=== PATIENT | female | born 1950 | race Two or more races ===

== ENCOUNTER → 2019-01-27 | Outpatient (CLI) | payer MEDICARE ==
[~2019-01-27] MED LIST: ASPI-496 PO; MULT-230 PO; SENN8.6T12 PO; lisinopril PO
[2019-01-27 09:55] LABS: MICROSCOPIC NOT IND
[2019-01-27 09:58] LABS: BASOPHILS # (AUTO) 0.03 x10^3/uL (0-0.1); BASOPHILS % (AUTO) 0 % (0-1); EOSINOPHILS # (AUTO) 0.07 x10^3/uL (0-0.4); EOSINOPHILS % (AUTO) 1 % (1-7); LYMPHOCYTES % (AUTO) 32 % (22-44); MD NO; MEAN CORPUSCULAR HEMOGLOBIN 32.5 pg (27.0-34.8); MEAN CORPUSCULAR HGB CONC 34.4 g/dL (32.4-35.8); MEAN CORPUSCULAR VOLUME 94.5 fL (80-100); MEAN PLATELET VOLUME 8.5 fL (7.4-10.4); MONOCYTES # (AUTO) 0.57 x10^3/uL (0.2-0.8); MONOCYTES % (AUTO) 7 % (2-9); NEUTROPHILS # (AUTO) 5.27 x10^3/uL (1.8-6.8); NEUTROPHILS % (AUTO) 60 % (42-75); PLATELET COUNT 251 x10^3/uL (130-400); RED BLOOD COUNT 4.45 x10^6/uL (3.82-5.3); RED CELL DISTRIBUTION WIDTH 13.1 % (9.6-15.2)
[2019-01-27 09:59] LABS: CULTURE INDICATED? NO
[2019-01-27 10:03] LABS: INTERNATIONAL NORMALIZED RATIO 0.93 (0.93-1.1); PROTHROMBIN TIME 9.8 Seconds (9.6-11.5)
[2019-01-27 10:04] LABS: ALANINE AMINOTRANSFERASE 26 U/L (12-78); ALBUMIN 3.7 g/dL (3.4-5.0); ANION GAP 4 mmol/L (5-15); CALCIUM 9.3 mg/dL (8.5-10.1); CHLORIDE 108 mmol/L (98-107)
[2019-01-27 10:06] LABS: ALKALINE PHOSPHATASE 133 U/L (45-117); BILIRUBIN,TOTAL 0.7 mg/dL (0.2-1.0); TOTAL PROTEIN 7.4 g/dL (6.4-8.2)
== END | disposition home or self-care (01) ==
LOC: EDSEX 08:32 → STAR 08:32
PROVIDERS: ATTEND Neurological Surgery
DX: Z01.818 Encounter for other preprocedural examination (principal); M43.16 Spondylolisthesis, lumbar region
CPT/HCPCS: 36415; 71046; 80053; 81003; 85025; 85610; 85730; 93005

== ENCOUNTER 2019-02-03 05:23 | Inpatient (IN) | payer MEDICARE ==
[2019-01-27 09:05] VITALS: BP 171/86
[~2019-02-03] VITALS: Ht 152.4 cm; Wt 79.3 kg
[~2019-02-03 05:23] MED LIST changes: -MULT-230 PO; +MULT-806 PO
[2019-02-03] MEDS ORDERED: LACTATED RINGERS 1,000 ML IV SCH (06:04)
[2019-02-03] MEDS ORDERED: BUPIVACAINE/PF-EPI 0.5% 1:200K ONE (06:06)
[2019-02-03] MEDS ORDERED: RANI150C PO (06:07)
[2019-02-03] MEDS ORDERED: THROMBIN 5,000 UNIT VIAL TP ONE ×3 (06:07→09:56)
[2019-02-03] MEDS ORDERED: BACITRACIN 50,000 UNIT ONE (06:07)
[2019-02-03] MEDS ORDERED: ATOR40TA78 PO (06:07)
[2019-02-03] MEDS ORDERED: LISI1TAB3 PO (06:08)
[2019-02-03] MEDS ORDERED: MIDAZOLAM 1 MG/ML, 2ML ONE (06:20)
[2019-02-03] MEDS ORDERED: FENTANYL PF 250 MCG/5ML ONE (06:20)
[2019-02-03] MEDS ORDERED: OXYcodone 5 MG/5 ML ORAL.SOL UDC PO PRN (07:00)
[2019-02-03] MEDS ORDERED: METOCLOPRAMIDE 5 MG/ML, 2ML IV PRN (07:00)
[2019-02-03] MEDS ORDERED: MEPERIDINE/PF 25MG/0.5ML IVPush PRN (07:00)
[2019-02-03] MEDS ORDERED: LABETALOL 5 MG/ML SYRINGE IV PRN (07:00)
[2019-02-03] MEDS ORDERED: HYDROmorphone 2 MG/ML, 1ML IVPush PRN (07:00)
[2019-02-03] MEDS ORDERED: GABAPENTIN 300 MG CAPSULE PO ONE (07:00)
[2019-02-03] MEDS ORDERED: LORazepam 2 MG/ML, 1ML IVPush PRN (07:00)
[2019-02-03] MEDS ORDERED: ACETAMINOPHEN 500 MG TABLET PO ONE (07:00)
[2019-02-03] MEDS ORDERED: FENTANYL PF 100 MCG/2ML IV PRN (07:00)
[2019-02-03] MEDS ORDERED: hydrALAzine 20 MG/ML, 1ML IV PRN (07:00)
[2019-02-03] MEDS ORDERED: DEXAMETHASONE 4 MG/ML, 1ML ONE (07:01)
[2019-02-03] MEDS ORDERED: CEFAZOLIN 1,000 MG ONE (07:01)
[2019-02-03] MEDS ORDERED: ONDANSETRON 2MG/ML, 2ML ONE (07:01)
[2019-02-03] MEDS ORDERED: EPHEDRINE 50 MG/ML, 1ML ONE (07:01)
[2019-02-03] MEDS ORDERED: ROCURONIUM 10 MG/ML,10ML ONE (07:01)
[2019-02-03] MEDS ORDERED: PROPOFOL 10 MG/ML, 20ML ONE (07:01)
[2019-02-03] MEDS ORDERED: HEPARIN 1,000 UNITS/ML, 30ML ONE (08:54)
[2019-02-03] MEDS ORDERED: DIPHENHYDRAMINE 50 MG/ML, 1ML IVPush PRN (10:00)
[2019-02-03] MEDS ORDERED: METHOCARBAMOL 750 MG TABLET PO PRN (10:00)
[2019-02-03] MEDS ORDERED: SENNA/DOCUSATE TABLET PO PRN (10:00)
[2019-02-03] MEDS ORDERED: PROMETHAZINE 25 MG/ML, 1ML IM PRN (10:00)
[2019-02-03] MEDS ORDERED: HYDROcodone/APAP 10/325 MG TABLET PO PRN (10:00)
[2019-02-03] MEDS ORDERED: morphine SULFATE 10 MG/ML, 1ML IVPush PRN (10:00)
[2019-02-03] MEDS ORDERED: BISACODYL 10 MG SUPP PR PRN (10:00)
[2019-02-03] MEDS ORDERED: PHARMACY MAY ADJ FOR RENAL FX MC PRN (10:00)
[2019-02-03] MEDS ORDERED: HYDROcodone/APAP 5/325 TABLET PO PRN (10:00)
[2019-02-03] MEDS ORDERED: ONDANSETRON 2MG/ML, 2ML IVPush PRN (10:00)
[2019-02-03] MEDS: MORPHINE SULFATE 4 MG/ML, 1ML IVPush PRN ×3 (10:10→10:59)
[2019-02-03] MEDS ORDERED: OXYcodone 5 MG/5 ML ORAL.SOL UDC ONE (10:14)
[2019-02-03] MEDS ORDERED: morphine SULFATE 10 MG/ML, 1ML ONE (10:14)
[2019-02-03 10:18] LABS: BASOPHILS # (AUTO) 0.03 x10^3/uL (0-0.1); BASOPHILS % (AUTO) 0 % (0-1); EOSINOPHILS # (AUTO) 0.01 x10^3/uL (0-0.4); EOSINOPHILS % (AUTO) 0 % (1-7); LYMPHOCYTES # (AUTO) 1.57 x10^3/uL (1-3.4); LYMPHOCYTES % (AUTO) 10 % (22-44); MD NO; MEAN CORPUSCULAR HEMOGLOBIN 31.4 pg (27.0-34.8); MEAN CORPUSCULAR HGB CONC 33.3 g/dL (32.4-35.8); MEAN CORPUSCULAR VOLUME 94.2 fL (80-100); MONOCYTES # (AUTO) 0.14 x10^3/uL (0.2-0.8); MONOCYTES % (AUTO) 1 % (2-9); NEUTROPHILS # (AUTO) 14.21 x10^3/uL (1.8-6.8); NEUTROPHILS % (AUTO) 89 % (42-75); PLATELET COUNT 233 x10^3/uL (130-400); RED BLOOD COUNT 4.08 x10^6/uL (3.82-5.3); RED CELL DISTRIBUTION WIDTH 13.2 % (9.6-15.2)
[2019-02-03 10:29] LABS: ANION GAP 6 mmol/L (5-15); CALCIUM 7.9 mg/dL (8.5-10.1); CHLORIDE 113 mmol/L (98-107); CREATININE 0.79 mg/dL (0.55-1.02)
[2019-02-03] MEDS: D5%-0.9% NACL+KCL 20MEQ 1,000 ML IV SCH ×2 (14:33→22:56)
[2019-02-03 14:52] VITALS: BP 114/73
[2019-02-03] MEDS: CEFAZOLIN PMX 1GM/50ML 50 ML IVPB SCH ×2 (15:23→22:56)
[2019-02-03 18:32] VITALS: BP 93/51
[2019-02-04 00:22] VITALS: BP 95/58
[2019-02-04 03:47] VITALS: BP 101/55
[2019-02-04 06:43] LABS: BASOPHILS # (AUTO) 0.03 x10^3/uL (0-0.1); BASOPHILS % (AUTO) 0 % (0-1); EOSINOPHILS % (AUTO) 0 % (1-7); LYMPHOCYTES # (AUTO) 1.91 x10^3/uL (1-3.4); LYMPHOCYTES % (AUTO) 14 % (22-44); MD NO; MEAN CORPUSCULAR HGB CONC 32.8 g/dL (32.4-35.8); MEAN CORPUSCULAR VOLUME 94.4 fL (80-100); MEAN PLATELET VOLUME 8.3 fL (7.4-10.4); MONOCYTES # (AUTO) 1.02 x10^3/uL (0.2-0.8); MONOCYTES % (AUTO) 7 % (2-9); NEUTROPHILS # (AUTO) 10.79 x10^3/uL (1.8-6.8); NEUTROPHILS % (AUTO) 79 % (42-75); PLATELET COUNT 201 x10^3/uL (130-400); RED BLOOD COUNT 3.33 x10^6/uL (3.82-5.3); RED CELL DISTRIBUTION WIDTH 13.5 % (9.6-15.2)
[2019-02-04 07:25] VITALS: BP 98/62
[2019-02-04] MEDS: HYDROCHLOROTHIAZIDE 12.5 MG CAPSULE PO SCH (08:28)
[2019-02-04] MEDS: LISINOPRIL 10 MG TABLET PO SCH (08:29)
[2019-02-04] MEDS: ATORVASTATIN 40 MG TABLET PO SCH (08:29)
[2019-02-04] MEDS: MULTIVITAMINS WITH IRON TABLET PO SCH (08:29)
[2019-02-04] MEDS: FAMOTIDINE 20 MG TABLET PO SCH (08:30)
[2019-02-04] MEDS: D5%-0.9% NACL+KCL 20MEQ 1,000 ML IV SCH ×2 (08:30→17:43)
[2019-02-04 10:56] LABS: BASOPHILS # (AUTO) 0.03 x10^3/uL (0-0.1); BASOPHILS % (AUTO) 0 % (0-1); EOSINOPHILS # (AUTO) 0.01 x10^3/uL (0-0.4); EOSINOPHILS % (AUTO) 0 % (1-7); LYMPHOCYTES # (AUTO) 2.31 x10^3/uL (1-3.4); LYMPHOCYTES % (AUTO) 18 % (22-44); MD NO; MEAN CORPUSCULAR HEMOGLOBIN 31.2 pg (27.0-34.8); MEAN CORPUSCULAR HGB CONC 32.5 g/dL (32.4-35.8); MEAN CORPUSCULAR VOLUME 96.1 fL (80-100); MEAN PLATELET VOLUME 8.1 fL (7.4-10.4); MONOCYTES # (AUTO) 0.97 x10^3/uL (0.2-0.8); MONOCYTES % (AUTO) 8 % (2-9); NEUTROPHILS # (AUTO) 9.57 x10^3/uL (1.8-6.8); NEUTROPHILS % (AUTO) 74 % (42-75); PLATELET COUNT 179 x10^3/uL (130-400); RED BLOOD COUNT 3.13 x10^6/uL (3.82-5.3); RED CELL DISTRIBUTION WIDTH 13.4 % (9.6-15.2)
[2019-02-04] MEDS: OXYcodone/APAP 5/325MG TABLET PO PRN ×2 (12:18→20:33)
[2019-02-04 13:43] VITALS: BP 84/33
[2019-02-04 16:29] LABS: BASOPHILS # (AUTO) 0.04 x10^3/uL (0-0.1); BASOPHILS % (AUTO) 0 % (0-1); EOSINOPHILS # (AUTO) 0.06 x10^3/uL (0-0.4); EOSINOPHILS % (AUTO) 1 % (1-7); LYMPHOCYTES % (AUTO) 25 % (22-44); MD NO; MEAN CORPUSCULAR HEMOGLOBIN 31.1 pg (27.0-34.8); MEAN CORPUSCULAR HGB CONC 32.8 g/dL (32.4-35.8); MEAN CORPUSCULAR VOLUME 94.8 fL (80-100); MEAN PLATELET VOLUME 8.5 fL (7.4-10.4); MONOCYTES # (AUTO) 0.72 x10^3/uL (0.2-0.8); MONOCYTES % (AUTO) 6 % (2-9); NEUTROPHILS # (AUTO) 7.84 x10^3/uL (1.8-6.8); NEUTROPHILS % (AUTO) 68 % (42-75); PLATELET COUNT 185 x10^3/uL (130-400); RED BLOOD COUNT 3.13 x10^6/uL (3.82-5.3)
[2019-02-04 19:18] VITALS: BP 80/46
[2019-02-04 21:03] LABS: BASOPHILS # (AUTO) 0.04 x10^3/uL (0-0.1); BASOPHILS % (AUTO) 0 % (0-1); EOSINOPHILS # (AUTO) 0.09 x10^3/uL (0-0.4); EOSINOPHILS % (AUTO) 1 % (1-7); LYMPHOCYTES # (AUTO) 3.26 x10^3/uL (1-3.4); LYMPHOCYTES % (AUTO) 28 % (22-44); MD NO; MEAN CORPUSCULAR HEMOGLOBIN 32.4 pg (27.0-34.8); MEAN CORPUSCULAR HGB CONC 33.9 g/dL (32.4-35.8); MEAN CORPUSCULAR VOLUME 95.7 fL (80-100); MEAN PLATELET VOLUME 8.5 fL (7.4-10.4); MONOCYTES # (AUTO) 0.79 x10^3/uL (0.2-0.8); MONOCYTES % (AUTO) 7 % (2-9); NEUTROPHILS % (AUTO) 64 % (42-75); PLATELET COUNT 174 x10^3/uL (130-400); RED BLOOD COUNT 3.08 x10^6/uL (3.82-5.3); RED CELL DISTRIBUTION WIDTH 13.3 % (9.6-15.2)
[2019-02-04 23:08] VITALS: BP 90/48
[2019-02-05 00:36] VITALS: BP 94/62
[2019-02-05] MEDS: D5%-0.9% NACL+KCL 20MEQ 1,000 ML IV SCH ×2 (01:09→09:00)
[2019-02-05 05:58] LABS: BASOPHILS # (AUTO) 0.03 x10^3/uL (0-0.1); BASOPHILS % (AUTO) 0 % (0-1); EOSINOPHILS # (AUTO) 0.12 x10^3/uL (0-0.4); EOSINOPHILS % (AUTO) 1 % (1-7); LYMPHOCYTES # (AUTO) 3.21 x10^3/uL (1-3.4); LYMPHOCYTES % (AUTO) 32 % (22-44); MD NO; MEAN CORPUSCULAR HEMOGLOBIN 32.5 pg (27.0-34.8); MEAN CORPUSCULAR HGB CONC 33.9 g/dL (32.4-35.8); MEAN CORPUSCULAR VOLUME 95.7 fL (80-100); MEAN PLATELET VOLUME 8.7 fL (7.4-10.4); MONOCYTES % (AUTO) 8 % (2-9); NEUTROPHILS # (AUTO) 5.79 x10^3/uL (1.8-6.8); NEUTROPHILS % (AUTO) 58 % (42-75); PLATELET COUNT 168 x10^3/uL (130-400); RED BLOOD COUNT 3.06 x10^6/uL (3.82-5.3); RED CELL DISTRIBUTION WIDTH 13.8 % (9.6-15.2)
[2019-02-05 06:53] VITALS: BP 113/78
[2019-02-05] MEDS: LISINOPRIL 10 MG TABLET PO SCH (09:06)
[2019-02-05] MEDS: ATORVASTATIN 40 MG TABLET PO SCH (09:07)
[2019-02-05] MEDS: HYDROCHLOROTHIAZIDE 12.5 MG CAPSULE PO SCH (09:07)
[2019-02-05] MEDS: FAMOTIDINE 20 MG TABLET PO SCH (09:07)
[2019-02-05] MEDS: MULTIVITAMINS WITH IRON TABLET PO SCH (09:07)
[2019-02-05 11:15] LABS: BASOPHILS # (AUTO) 0.06 x10^3/uL (0-0.1); BASOPHILS % (AUTO) 1 % (0-1); EOSINOPHILS # (AUTO) 0.12 x10^3/uL (0-0.4); EOSINOPHILS % (AUTO) 1 % (1-7); LYMPHOCYTES % (AUTO) 31 % (22-44); MD NO; MEAN CORPUSCULAR HEMOGLOBIN 31.9 pg (27.0-34.8); MEAN CORPUSCULAR HGB CONC 33.7 g/dL (32.4-35.8); MEAN CORPUSCULAR VOLUME 94.7 fL (80-100); MEAN PLATELET VOLUME 8.6 fL (7.4-10.4); MONOCYTES # (AUTO) 0.79 x10^3/uL (0.2-0.8); MONOCYTES % (AUTO) 8 % (2-9); NEUTROPHILS # (AUTO) 5.74 x10^3/uL (1.8-6.8); NEUTROPHILS % (AUTO) 59 % (42-75); PLATELET COUNT 189 x10^3/uL (130-400); RED CELL DISTRIBUTION WIDTH 13.2 % (9.6-15.2)
== END 2019-02-05 11:55 | disposition home or self-care (01) | DRG 981 ==
LOC: EDSEX → ORIP 05:23 → 4NOR 11:37 → DCLOUNGE 02-05 11:39
PROVIDERS: ADMIT Neurological Surgery; ATTEND Neurological Surgery
PROC: 30233K1 Transfusion of Nonautologous Frozen Plasma into Peripheral Vein, Percutaneous Approach (ICD-10-PCS; 2019-02-03)
PROC: 30233R1 Transfusion of Nonautologous Platelets into Peripheral Vein, Percutaneous Approach (ICD-10-PCS; 2019-02-03)
PROC: 06QD0ZZ Repair Left Common Iliac Vein, Open Approach (ICD-10-PCS; principal; 2019-02-03 07:00)
DX: M51.37 Other intervertebral disc degeneration, lumbosacral region (principal); S35.515A Injury of left iliac vein, initial encounter; M43.17 Spondylolisthesis, lumbosacral region; I10 Essential (primary) hypertension; E66.9 Obesity, unspecified; X58.XXXA Exposure to other specified factors, initial encounter; F32.9 Major depressive disorder, single episode, unspecified; F41.9 Anxiety disorder, unspecified; M51.16 Intervertebral disc disorders with radiculopathy, lumbar region; Z53.8 Procedure and treatment not carried out for other reasons; Z98.1 Arthrodesis status; Y93.89 Activity, other specified; Y92.89 Other specified places as the place of occurrence of the external cause; Z68.34 Body mass index [BMI] 34.0-34.9, adult; Z79.899 Other long term (current) drug therapy; Z83.3 Family history of diabetes mellitus; Z82.49 Family history of ischemic heart disease and other diseases of the circulatory system; Z87.891 Personal history of nicotine dependence
CPT/HCPCS: 36415; 72110; 72131; 74018; 80048; 85025; 86850; 86900; 86923; G0378; J0690; J1100; J1644; J2250; J2405; J2704; J3010; C1760; J3480; J7120; P9017; P9035

== ENCOUNTER 2019-04-14 07:00 | Inpatient (IN) | payer MEDICARE ==
[~2019-04-14] VITALS: Ht 152.4 cm; Wt 73.5 kg
[~2019-04-14 07:00] MED LIST changes: +ATOR40TA78 PO; +BACITRACIN 50,000 UNIT ONE; +BUPIVACAINE/PF 0.5% ONE; +BUPIVACAINE/PF-EPI 0.5% 1:200K ONE; +LISI1TAB3 PO; +RANI150C PO; +THROMBIN 5,000 UNIT VIAL TP ONE; +VANCOMYCIN 1,000 MG ONE
[2019-04-14] MEDS ORDERED: FENTANYL PF 250 MCG/5ML ONE (10:15)
[2019-04-14] MEDS ORDERED: MIDAZOLAM 1 MG/ML, 2ML ONE (10:15)
[2019-04-14] MEDS ORDERED: WATER-INJECTION,STERILE 10 ML IV ONE (10:16)
[2019-04-14] MEDS ORDERED: CEFAZOLIN 1,000 MG ONE ×2 (10:16)
[2019-04-14] MEDS ORDERED: ROCURONIUM 10MG/ML,5ML ONE (10:17)
[2019-04-14] MEDS ORDERED: PROPOFOL 10 MG/ML, 20ML ONE (10:18)
[2019-04-14] MEDS ORDERED: LIDOCAINE-MPF 2% ,5ML ONE (10:18)
[2019-04-14 10:55] VITALS: BP 126/82
[2019-04-14] MEDS ORDERED: LACTATED RINGERS 1,000 ML IV SCH (10:59)
[2019-04-14] MEDS ORDERED: PHENYLEPHRINE 10 MG/ML ONE (11:10)
[2019-04-14 11:23] LABS: MICROSCOPIC NOT IND
[2019-04-14 11:27] LABS: CULTURE INDICATED? NO
[2019-04-14] MEDS ORDERED: GLYCOPYRROLATE 0.2MG/1ML, 5ML ONE (11:48)
[2019-04-14] MEDS ORDERED: NEOSTIGMINE 1 MG/ML, 10ML ONE (11:48)
[2019-04-14] MEDS ORDERED: ONDANSETRON 2MG/ML, 2ML ONE ×2 (11:55)
[2019-04-14] MEDS ORDERED: DEXAMETHASONE 4 MG/ML, 1ML ONE ×3 (11:55)
[2019-04-14] MEDS ORDERED: PROPOFOL 50 ML ONE ×2 (11:56→13:07)
[2019-04-14] MEDS ORDERED: HALOPERIDOL 5 MG/ML IV PRN (12:30)
[2019-04-14] MEDS ORDERED: OXYcodone 5 MG/5 ML ORAL.SOL UDC PO PRN (12:30)
[2019-04-14] MEDS ORDERED: MEPERIDINE/PF 25MG/0.5ML IVPush PRN (12:30)
[2019-04-14] MEDS ORDERED: ACETAMINOPHEN 325 MG TABLET PO PRN (12:30)
[2019-04-14] MEDS ORDERED: PROMETHAZINE 25 MG/ML, 1ML IV PRN (12:30)
[2019-04-14] MEDS ORDERED: FENTANYL PF 100 MCG/2ML IV PRN (12:30)
[2019-04-14] MEDS ORDERED: HYDROmorphone 2 MG/ML, 1ML IVPush PRN (12:30)
[2019-04-14] MEDS ORDERED: METHOCARBAMOL 1000MG/10 ML IV PRN (12:30)
[2019-04-14] MEDS ORDERED: hydrALAzine 20 MG/ML, 1ML IV PRN (12:30)
[2019-04-14] MEDS ORDERED: THROMBIN 5,000 UNIT VIAL TP ONE (13:08)
[2019-04-14] MEDS ORDERED: MEPERIDINE/PF 100 MG/ML ONE (13:34)
[2019-04-14] MEDS ORDERED: VANCOMYCIN 1,000 MG IM ONE (13:38)
[2019-04-14] MEDS ORDERED: METHOCARBAMOL 1,000 MG in DEXTROSE 5% 100 ML IV ONE (14:00)
[2019-04-14] MEDS ORDERED: OXYcodone 5 MG/5 ML ORAL.SOL UDC ONE (15:09)
[2019-04-14] MEDS ORDERED: ACETAMINOPHEN 650 MG/20.3 ML UDC ONE (15:09)
[2019-04-14] MEDS ORDERED: DIPHENHYDRAMINE 50 MG CAPSULE PO PRN (16:30)
[2019-04-14] MEDS ORDERED: HYDROmorphone 2MG TABLET PO PRN (16:30)
[2019-04-14] MEDS ORDERED: ONDANSETRON 2MG/ML, 2ML IV PRN (16:30)
[2019-04-14] MEDS ORDERED: PROMETHAZINE 25 MG/ML, 1ML IM PRN (16:30)
[2019-04-14] MEDS ORDERED: MAGNESIUM HYDROXIDE 8%, 30ML UDC PO PRN (16:30)
[2019-04-14] MEDS ORDERED: BISACODYL 10 MG SUPP PR PRN (16:30)
[2019-04-14] MEDS ORDERED: HYDROmorphone 2 MG/ML, 1ML IM PRN (16:30)
[2019-04-14] MEDS: D5%-0.9% NACL+KCL 20MEQ 1,000 ML IV SCH (16:53)
[2019-04-14] MEDS ORDERED: HYDROcodone/APAP 5/325 TABLET PO PRN (17:00)
[2019-04-14 18:52] VITALS: BP 101/54
[2019-04-14] MEDS: CEFAZOLIN PMX 1GM/50ML 50 ML IVPB SCH (19:48)
[2019-04-14] MEDS: METHOCARBAMOL 750 MG TABLET PO PRN (23:21)
[2019-04-15 00:18] VITALS: BP 99/57
[2019-04-15] MEDS: OXYcodone/APAP 5/325MG TABLET PO PRN ×3 (03:12→20:41)
[2019-04-15] MEDS: D5%-0.9% NACL+KCL 20MEQ 1,000 ML IV SCH ×2 (03:12→12:11)
[2019-04-15] MEDS: CEFAZOLIN PMX 1GM/50ML 50 ML IVPB SCH (04:29)
[2019-04-15 05:28] LABS: BASOPHILS % (AUTO) 0 % (0-1); EOSINOPHILS % (AUTO) 0 % (1-7); LYMPHOCYTES % (AUTO) 9 % (22-44); MD NO; MEAN CORPUSCULAR HEMOGLOBIN 31.5 pg (27.0-34.8); MEAN CORPUSCULAR HGB CONC 33.8 g/dL (32.4-35.8); MEAN CORPUSCULAR VOLUME 93.1 fL (80-100); MEAN PLATELET VOLUME 7.9 fL (7.4-10.4); MONOCYTES # (AUTO) 0.71 x10^3/uL (0.2-0.8); MONOCYTES % (AUTO) 5 % (2-9); NEUTROPHILS # (AUTO) 12.05 x10^3/uL (1.8-6.8); NEUTROPHILS % (AUTO) 86 % (42-75); PLATELET COUNT 279 x10^3/uL (130-400); RED BLOOD COUNT 3.39 x10^6/uL (3.82-5.3); RED CELL DISTRIBUTION WIDTH 13.2 % (9.6-15.2)
[2019-04-15 05:39] LABS: ANION GAP 6 mmol/L (5-15); CALCIUM 8.1 mg/dL (8.5-10.1); CHLORIDE 109 mmol/L (98-107); CREATININE 0.72 mg/dL (0.55-1.02)
[2019-04-15] MEDS: ENOXAPARIN 40 MG/0.4 ML SQ SCH (05:42)
[2019-04-15 07:09] VITALS: BP 102/52
[2019-04-15] MEDS: HYDROCHLOROTHIAZIDE 12.5 MG CAPSULE PO SCH (07:32)
[2019-04-15] MEDS: ATORVASTATIN 40 MG TABLET PO SCH (07:32)
[2019-04-15] MEDS: SENNA/DOCUSATE TABLET PO SCH (07:32)
[2019-04-15] MEDS: LISINOPRIL 10 MG TABLET PO SCH (07:32)
[2019-04-15] MEDS: FAMOTIDINE 20 MG TABLET PO SCH (07:33)
[2019-04-15] MEDS: METHOCARBAMOL 750 MG TABLET PO PRN ×2 (07:36→15:55)
[2019-04-15 13:44] VITALS: BP 95/46
[2019-04-15 18:34] VITALS: BP 108/47
[2019-04-16] MEDS: METHOCARBAMOL 750 MG TABLET PO PRN ×3 (01:23→19:54)
[2019-04-16 01:35] VITALS: BP 94/48
[2019-04-16] MEDS: ENOXAPARIN 40 MG/0.4 ML SQ SCH (05:35)
[2019-04-16] MEDS: OXYcodone/APAP 5/325MG TABLET PO PRN ×3 (06:04→21:43)
[2019-04-16 06:34] VITALS: BP 98/57
[2019-04-16] MEDS: LISINOPRIL 10 MG TABLET PO SCH (08:44)
[2019-04-16] MEDS: FAMOTIDINE 20 MG TABLET PO SCH (08:44)
[2019-04-16] MEDS: SENNA/DOCUSATE TABLET PO SCH (08:44)
[2019-04-16] MEDS: HYDROCHLOROTHIAZIDE 12.5 MG CAPSULE PO SCH (08:44)
[2019-04-16] MEDS: ATORVASTATIN 40 MG TABLET PO SCH (08:44)
[2019-04-16] MEDS: D5%-0.9% NACL+KCL 20MEQ 1,000 ML IV SCH ×2 (10:36→21:43)
[2019-04-16 14:30] VITALS: BP 92/61
[2019-04-16 19:41] VITALS: BP 107/68
[2019-04-17 01:52] VITALS: BP 94/60
[2019-04-17] MEDS: OXYcodone/APAP 5/325MG TABLET PO PRN ×3 (04:27→16:34)
[2019-04-17] MEDS: ENOXAPARIN 40 MG/0.4 ML SQ SCH (05:55)
[2019-04-17] MEDS: D5%-0.9% NACL+KCL 20MEQ 1,000 ML IV SCH ×2 (06:46→07:27)
[2019-04-17 08:15] VITALS: BP 95/59
[2019-04-17] MEDS ORDERED: MAGNESIUM CITRATE 300ML ORAL SOL PO ONE (08:30)
[2019-04-17] MEDS: METHOCARBAMOL 750 MG TABLET PO PRN (08:45)
[2019-04-17] MEDS: FAMOTIDINE 20 MG TABLET PO SCH (08:46)
[2019-04-17] MEDS: ATORVASTATIN 40 MG TABLET PO SCH (08:46)
[2019-04-17] MEDS: SENNA/DOCUSATE TABLET PO SCH (08:46)
[2019-04-17] MEDS: METOCLOPRAMIDE 10MG TABLET PO SCH ×2 (08:47→15:33)
[2019-04-17] MEDS ORDERED: MAGNESIUM CITRATE 300ML ORAL SOL PO PRN (10:30)
[2019-04-17] MEDS: HYDROCHLOROTHIAZIDE 12.5 MG CAPSULE PO SCH (11:10)
[2019-04-17] MEDS: LISINOPRIL 10 MG TABLET PO SCH (11:10)
[2019-04-17 14:02] VITALS: BP 102/67
[2019-04-17 14:59] VITALS: BP 105/61
[2019-04-17] MEDS ORDERED: OXYC-302 PO (15:17)
[2019-04-17] MEDS ORDERED: METH750T87 PO (15:18)
== END 2019-04-17 16:56 | disposition home or self-care (01) | DRG 454 ==
LOC: ORIP 10:00 → 4NOR 16:08 → DCLOUNGE 04-17 16:45
PROVIDERS: ADMIT Neurological Surgery; ATTEND Neurological Surgery
PROC: 01NB0ZZ Release Lumbar Nerve, Open Approach (ICD-10-PCS; 2019-04-14)
PROC: 01NR0ZZ Release Sacral Nerve, Open Approach (ICD-10-PCS; 2019-04-14)
PROC: 0ST40ZZ Resection of Lumbosacral Disc, Open Approach (ICD-10-PCS; 2019-04-14)
PROC: 4A11X4G Monitoring of Peripheral Nervous Electrical Activity, Intraoperative, External Approach (ICD-10-PCS; 2019-04-14)
PROC: 00UT07Z Supplement Spinal Meninges with Autologous Tissue Substitute, Open Approach (ICD-10-PCS; 2019-04-14)
PROC: 0QP Lower Bones, Removal (ICD-10-PCS; 2019-04-14)
PROC: 0SG3071 Fusion of Lumbosacral Joint with Autologous Tissue Substitute, Posterior Approach, Posterior Column, Open Approach (ICD-10-PCS; 2019-04-14)
PROC: 0SG30AJ Fusion of Lumbosacral Joint with Interbody Fusion Device, Posterior Approach, Anterior Column, Open Approach (ICD-10-PCS; principal; 2019-04-14 12:00)
DX: M48.07 Spinal stenosis, lumbosacral region (principal); G97.41 Accidental puncture or laceration of dura during a procedure; M53.2X7 Spinal instabilities, lumbosacral region; I10 Essential (primary) hypertension; K21.9 Gastro-esophageal reflux disease without esophagitis; E78.5 Hyperlipidemia, unspecified; M43.17 Spondylolisthesis, lumbosacral region; M54.16 Radiculopathy, lumbar region; M19.90 Unspecified osteoarthritis, unspecified site; F32.9 Major depressive disorder, single episode, unspecified; F41.9 Anxiety disorder, unspecified; Z82.49 Family history of ischemic heart disease and other diseases of the circulatory system; Z83.3 Family history of diabetes mellitus; Y83.8 Other surgical procedures as the cause of abnormal reaction of the patient, or of later complication, without mention of misadventure at the time of the procedure; Y79.3 Surgical instruments, materials and orthopedic devices (including sutures) associated with adverse incidents; Y92.234 Operating room of hospital as the place of occurrence of the external cause
CPT/HCPCS: 36415; 72100; 80048; 81003; 85025; C1713; G0378; J0690; J1100; J1650; J2250; J2405; J2704; J2710; J3010; J3370; C1760; C1763; J2175; J2370; J2800; J3480; J7120

== ENCOUNTER 2020-07-03 08:45 | Outpatient (CLI) | payer MEDICARE ==
[~2020-07-03] VITALS: Ht 144.8 cm; Wt 71.3 kg
[~2020-07-03 08:45] MED LIST changes: -BACITRACIN 50,000 UNIT ONE; -BUPIVACAINE/PF 0.5% ONE; -BUPIVACAINE/PF-EPI 0.5% 1:200K ONE; +LISI1TAB23 PO; -LISI1TAB3 PO; +METH750T87 PO; +OXYC-302 PO; -THROMBIN 5,000 UNIT VIAL TP ONE; -VANCOMYCIN 1,000 MG ONE
[2020-07-03] MEDS ORDERED: LACTATED RINGERS 1,000 ML IV SCH (09:14)
[2020-07-03 09:16] VITALS: BP 149/80
[2020-07-03] MEDS ORDERED: CHLORHEXIDINE 15 ML UDC MM ONE (09:30)
[2020-07-03] MEDS ORDERED: MAGN400T36 PO (09:44)
[2020-07-03] MEDS ORDERED: ASPI-496 PO (09:44)
[2020-07-03] MEDS ORDERED: PANT40TA5 PO (09:44)
[2020-07-03] MEDS ORDERED: MELO15TA24 PO (09:44)
[2020-07-03] MEDS ORDERED: HYDR12.517 PO (09:44)
[2020-07-03 10:10] LABS: ALANINE AMINOTRANSFERASE 29 U/L (12-78); ALBUMIN 3.8 g/dL (3.4-5.0); ANION GAP 4 mmol/L (5-15); CALCIUM 9.6 mg/dL (8.5-10.1); CHLORIDE 107 mmol/L (98-107); CREATININE 0.82 mg/dL (0.55-1.02)
[2020-07-03 10:13] LABS: ALKALINE PHOSPHATASE 171 U/L (45-117); BILIRUBIN,TOTAL 1.1 mg/dL (0.2-1.0); TOTAL PROTEIN 7.4 g/dL (6.4-8.2)
[2020-07-07] MEDS ORDERED: BUPIVACAINE/PF-EPI 0.5% 1:200K ONE (11:09)
[2020-07-07] MEDS ORDERED: BACITRACIN 50,000 UNIT ONE (11:09)
== END 2020-07-03 23:59 | disposition home or self-care (01) ==
LOC: OUT 08:45 → EDSTATUS 12:00 → OUT 23:59
PROVIDERS: ATTEND Surgery Vascular Surgery
DX: Z01.818 Encounter for other preprocedural examination (principal); Z11.59 Encounter for screening for other viral diseases; K40.30 Unilateral inguinal hernia, with obstruction, without gangrene, not specified as recurrent; Z53.8 Procedure and treatment not carried out for other reasons; Z79.899 Other long term (current) drug therapy
CPT/HCPCS: 36415; 80053; 87635; 93005; J7120

== ENCOUNTER 2020-07-07 08:18 | Day surgery (SDC) | payer MEDICARE ==
[~2020-07-07] VITALS: Ht 144.8 cm; Wt 70.6 kg
[~2020-07-07 08:18] MED LIST changes: +HYDR12.517 PO; +MAGN400T36 PO; +MELO15TA24 PO; +PANT40TA5 PO
[2020-07-07 08:42] VITALS: BP 154/81
[2020-07-07] MEDS ORDERED: CHLORHEXIDINE 15 ML UDC MM STA (08:45)
[2020-07-07] MEDS ORDERED: CHLORHEXIDINE 15 ML UDC ONE (08:59)
[2020-07-07] MEDS ORDERED: LACTATED RINGERS 1,000 ML IV SCH (08:59)
[2020-07-07] MEDS ORDERED: PLEASE ENTER HEIGHT AND WEIGHT MC SCH (09:00)
[2020-07-07] MEDS ORDERED: MIDAZOLAM 1 MG/ML, 2ML ONE (11:14)
[2020-07-07] MEDS ORDERED: FENTANYL PF 250 MCG/5ML ONE (11:14)
[2020-07-07] MEDS ORDERED: PROPOFOL 10 MG/ML, 20ML ONE (11:25)
[2020-07-07] MEDS ORDERED: SUCCINYLCHOLINE 20 MG/ML, 10ML ONE (11:26)
[2020-07-07] MEDS ORDERED: DEXAMETHASONE 4 MG/ML, 1ML ONE (11:28)
[2020-07-07] MEDS ORDERED: ROCURONIUM 10 MG/ML,10ML ONE (11:28)
[2020-07-07] MEDS ORDERED: CEFAZOLIN 1,000 MG ONE ×2 (11:34→11:52)
[2020-07-07] MEDS ORDERED: BUPIVACAINE/PF 0.25% ONE ×2 (11:49→11:52)
[2020-07-07] MEDS ORDERED: ONDANSETRON 2MG/ML, 2ML ONE ×2 (11:52)
[2020-07-07] MEDS ORDERED: SUGAMMADEX 200 MG/2 ML IVPush ONE (11:52)
[2020-07-07] MEDS ORDERED: HYDROmorphone 1 MG/ML, 1ML INJ IVPush PRN (12:00)
[2020-07-07] MEDS ORDERED: ACETAMINOPHEN 325 MG TABLET PO PRN (12:00)
[2020-07-07] MEDS ORDERED: DIAZEPAM 5 MG/ML, 2ML IVPush PRN (12:00)
[2020-07-07] MEDS ORDERED: OXYcodone 5 MG/5 ML ORAL.SOL UDC PO PRN (12:00)
[2020-07-07] MEDS ORDERED: LABETALOL 5MG/ML, 20ML IV PRN (12:00)
[2020-07-07] MEDS ORDERED: hydrALAzine 20 MG/ML, 1ML IV PRN (12:00)
[2020-07-07] MEDS ORDERED: DIPHENHYDRAMINE 50 MG/ML, 1ML IVPush PRN (12:00)
[2020-07-07] MEDS ORDERED: PROMETHAZINE 25 MG/ML, 1ML IVPush PRN (12:00)
[2020-07-07] MEDS ORDERED: MIDAZOLAM 1 MG/ML, 2ML IV PRN (12:00)
[2020-07-07] MEDS ORDERED: ONDANSETRON 2MG/ML, 2ML IVPush PRN (12:00)
[2020-07-07] MEDS ORDERED: EPHEDRINE 50 MG/ML, 1ML IVPush PRN (12:00)
[2020-07-07] MEDS ORDERED: PROMETHAZINE 12.5 MG SUPP PR PRN (12:00)
[2020-07-07] MEDS ORDERED: MEPERIDINE/PF 25MG/0.5ML IVPush PRN (12:00)
[2020-07-07] MEDS ORDERED: ALBUTEROL SULFATE 2.5 MG/3 ML NPPB PRN (12:00)
[2020-07-07] MEDS ORDERED: FENTANYL PF 100 MCG/2ML ONE (12:38)
[2020-07-07] MEDS: FENTANYL PF 100 MCG/2ML IV PRN ×2 (12:39→12:54)
[2020-07-07] MEDS ORDERED: ACETAMINOPHEN 650 MG/20.3 ML UDC ONE (12:55)
[2020-07-07] MEDS ORDERED: OXYcodone 5 MG/5 ML ORAL.SOL UDC ONE (12:55)
== END 2020-07-07 15:30 | disposition home or self-care (01) ==
LOC: OUT 08:18
PROVIDERS: ATTEND Surgery Vascular Surgery
DX: K43.2 Incisional hernia without obstruction or gangrene (principal); Z11.59 Encounter for screening for other viral diseases; F41.9 Anxiety disorder, unspecified; K21.9 Gastro-esophageal reflux disease without esophagitis; I10 Essential (primary) hypertension; E78.5 Hyperlipidemia, unspecified; Z79.82 Long term (current) use of aspirin; Z79.899 Other long term (current) drug therapy; Z87.891 Personal history of nicotine dependence; Z82.49 Family history of ischemic heart disease and other diseases of the circulatory system; Z83.3 Family history of diabetes mellitus
CPT/HCPCS: 49560; 49568; 87635; C1729; C1781; J0330; J0690; J1100; J2250; J2405; J2704; J3010; J3490; J7120